=== PATIENT | male | born 1950 | race Caucasian/White ===

== ENCOUNTER → 2020-02-07 07:39 | Outpatient (BNVA) | payer MEDICARE, SELFPAY | PROVIDERS: Family Provider Family Medicine; PCP Family Medicine; Visit Provider Podiatrist Foot & Ankle Surgery | DX: L60.3 Nail dystrophy (principal) | CPT/HCPCS: 84450; 84460 ==

== ENCOUNTER → 2020-02-18 07:23 | Outpatient (BNVA) | payer MEDICARE, SELFPAY | PROVIDERS: Family Provider Family Medicine; PCP Family Medicine; Visit Provider Internal Medicine | DX: R61 Generalized hyperhidrosis (principal) | CPT/HCPCS: 84439; 84443 ==

== ENCOUNTER → 2020-03-02 11:59 | Outpatient (BNVA) | payer MEDICARE, SELFPAY | PROVIDERS: Family Provider Family Medicine; PCP Family Medicine; Visit Provider Family Medicine | DX: I48.91 Unspecified atrial fibrillation (principal); I10 Essential (primary) hypertension | CPT/HCPCS: 36415; 80053; 85025 ==

== ENCOUNTER → 2020-03-17 09:49 | Outpatient (BNVA) | payer MEDICARE, SELFPAY | PROVIDERS: Family Provider Family Medicine; PCP Family Medicine; Referring Provider Family Medicine; Visit Provider Urology | DX: N40.1 Benign prostatic hyperplasia with lower urinary tract symptoms (principal); N20.1 Calculus of ureter; R35.8 Other polyuria | CPT/HCPCS: 81001 ==

== ENCOUNTER → 2020-04-09 16:34 | Outpatient (BNVA) | payer MEDICARE, SELFPAY | PROVIDERS: Family Provider Family Medicine; PCP Family Medicine; Visit Provider Dermatology | DX: D48.9 Neoplasm of uncertain behavior, unspecified (principal) | CPT/HCPCS: 88304 ==

== ENCOUNTER 2020-04-20 12:42 | Outpatient (CLI) | payer MEDICARE, SELFPAY ==
--- NOTE | 2020-04-20 13:03 | MR_ITS ---
WS: [id number] MRI HEAD WITH CONTRAST WITH ATTENTION TO THE INTERNAL AUDITORY CANALS TECHNIQUE: Sagittal T1, T2 axial, T2 axial flair, axial susceptibility weighted imaging, axial diffus ion weighted images, and coronal T2 images were obtained. Pre and post T1 axial and post T1 coronal i mages. ADC and FSPGR images. Post gadolinium images with attention to the internal auditory canals. A xial fiesta imaging. CLINICAL INFORMATION: DIZZINESS AND GIDDINESS COMPARISON: None. FINDINGS: No evidence of restricted diffusion to suggest acute ischemia. Ventricular system and basal cisterns are patent. No suspicious intracranial signal abnormalities. Mild small vessel changes. Mild parenchy mal volume loss. Normal posterior fossa. Normal vascular flow voids at the skull base. No extra-axial fluid collections. No evidence of mass or mass effect. Paranasal sinuses and mastoid air cells are w ell aerated. Mild mucosal thickening right mastoid air cells. Normal posterior nasopharynx. Proximal 7th and 8th cranial nerves are normal in appearance. Normal trigeminal nerve root entry zone s. No hemosiderin on the susceptibility weighted images. Mild symmetric atrophy involving the tempora l lobes and hippocampal formations. Normal optic chiasm and pituitary infundibulum. MR/MR iac's wo/w con* [id number] IMPRESSION: 1. Proximal 7th and 8th cranial nerves are normal in appearance. No evidence o f enhancing IAC or CP angle mass. Normal trigeminal nerve root entry zones. 2. Mild mucosal thickening right mastoid air cells. Paranasal sinuses and left mastoid air cells are well aerated. Normal posterior nasopharynx. 3. Minimal small vessel changes. Mild parenchymal volume loss. 4. No hemosiderin on susceptibly weighted images.
== END 2020-04-20 12:43 | disposition home or self-care (01) ==
PROVIDERS: PCP Family Medicine; Visit Provider Specialist
DX: R42 Dizziness and giddiness (principal)
CPT/HCPCS: 70553; A9579

== ENCOUNTER → 2020-04-24 13:58 | Outpatient (BNVA) | payer MEDICARE, SELFPAY | PROVIDERS: PCP Family Medicine; Visit Provider Nurse Practitioner Family | DX: J02.9 Acute pharyngitis, unspecified (principal) | CPT/HCPCS: 87635; 87880 ==

== ENCOUNTER 2020-05-26 10:30 | Outpatient (RCR) | payer MEDICARE, SELFPAY | END 2020-06-18 23:59 | disposition home or self-care (01) | LOC: SPT 10:30 | PROVIDERS: PCP Family Medicine; Referring Provider Otolaryngology; Visit Provider Otolaryngology | DX: R42 Dizziness and giddiness (principal) | CPT/HCPCS: 95992; 97162 ==

== ENCOUNTER → 2020-08-12 10:01 | Outpatient (BNVA) | payer MEDICARE, SELFPAY | PROVIDERS: PCP Family Medicine; Visit Provider Family Medicine | DX: M25.521 Pain in right elbow (principal) | CPT/HCPCS: 73070 ==

== ENCOUNTER 2020-09-02 06:00 | Outpatient (RCR) | payer MEDICARE, SELFPAY | END 2020-09-16 23:59 | disposition home or self-care (01) | LOC: GPT 06:00 | PROVIDERS: PCP Family Medicine; Referring Provider Family Medicine; Visit Provider Family Medicine | DX: M62.830 Muscle spasm of back (principal) | CPT/HCPCS: 97032; 97110; 97140; 97161; 97530 ==

== ENCOUNTER 2020-09-17 06:00 | Outpatient (RCR) | payer MEDICARE, SELFPAY | END 2020-10-16 23:59 | disposition home or self-care (01) | LOC: GPT 06:00 | PROVIDERS: PCP Family Medicine; Referring Provider Family Medicine; Visit Provider Family Medicine | DX: M62.830 Muscle spasm of back (principal) | CPT/HCPCS: 97032; 97110; 97140; 97164; 97530 ==

== ENCOUNTER → 2020-11-25 11:34 | Outpatient (BNVA) | payer MEDICARE, SELFPAY | PROVIDERS: PCP Family Medicine; Visit Provider Orthopaedic Surgery | DX: M17.0 Bilateral primary osteoarthritis of knee (principal); M25.561 Pain in right knee; M25.562 Pain in left knee | CPT/HCPCS: 73560; 73565 ==

== ENCOUNTER → 2021-05-04 15:54 | Outpatient (BNVA) | payer MEDICARE, SELFPAY | PROVIDERS: PCP Family Medicine; Visit Provider Nurse Practitioner Family | DX: I10 Essential (primary) hypertension (principal); I48.91 Unspecified atrial fibrillation; N40.1 Benign prostatic hyperplasia with lower urinary tract symptoms | CPT/HCPCS: 80053; 80061; 84439; 84443; 85025; G0103 ==

== ENCOUNTER → 2021-08-02 10:19 | Outpatient (BNVA) | payer MEDICARE, SELFPAY | PROVIDERS: PCP Family Medicine; Visit Provider Family Medicine | DX: M25.432 Effusion, left wrist (principal); S52.615A Nondisplaced fracture of left ulna styloid process, initial encounter for closed fracture; X58.XXXA Exposure to other specified factors, initial encounter; M18.9 Osteoarthritis of first carpometacarpal joint, unspecified | CPT/HCPCS: 73110 ==

== ENCOUNTER → 2021-09-15 10:17 | Outpatient (BNVA) | payer MEDICARE, SELFPAY | PROVIDERS: PCP Family Medicine; Visit Provider Podiatrist Foot & Ankle Surgery | DX: M79.672 Pain in left foot (principal); M19.072 Primary osteoarthritis, left ankle and foot | CPT/HCPCS: 73630 ==

== ENCOUNTER → 2022-02-07 09:37 | Outpatient (BNVA) | payer MEDICARE, SELFPAY | PROVIDERS: PCP Family Medicine; Visit Provider Nurse Practitioner Family | DX: M79.644 Pain in right finger(s) (principal) | CPT/HCPCS: 73140 ==

== ENCOUNTER → 2022-03-23 10:46 | Outpatient (BNVA) | payer MEDICARE, SELFPAY | PROVIDERS: PCP Family Medicine; Visit Provider Nurse Practitioner Family | DX: I48.91 Unspecified atrial fibrillation (principal) | CPT/HCPCS: 99213; 99214 ==

== ENCOUNTER 2022-04-29 12:29 | Outpatient (CLI) | payer MEDICARE, SELFPAY ==
--- NOTE | 2022-04-29 12:45 | USCV_ITS ---
Miguel Angel Lechuga Age: 71 Gender: M : 1950 Exam Date: 04/29/2022 13:01 Ordering Phys: Jenny Carroll Technologist: Consuelo Dominguez [place] [facility] [place]: HTN BP: 122 / 80 HR: 74 Rhythm: Sinus Technical Quality: Good MEASUREMENTS (Male / Female) Normal Values 2D ECHO LV Diastolic Diameter PLAX 4.4 cm 4.2 - 5.9 / 3.9 - 5.3 cm LV Systolic Diameter PLAX 1.9 cm IVS Diastolic Thickness 1.0 cm 0.6 - 1.0 / 0.6 - 0.9 cm IVS Systolic Thickness 1.6 cm LVPW Diastolic Thickness 0.9 cm 0.6 - 1.0 / 0.6 - 0.9 cm LVPW Systolic Thickness 1.7 cm LVOT Diameter 2.2 cm LV Ejection Fraction 2D Teich 87.0 % LV Ejection Fraction MOD 2C 75.3 % LV Ejection Fraction 2C AL 77.5 % LA Diameter 2.4 cm LA Width 2.6 cm LA Height 4.9 cm RA Width 2.5 cm Aorta at Sinotubular Diameter 3.0 cm IVC Diameter 2.0 cm M-MODE MV E Point Septal Separation 0.2 cm DOPPLER AV Peak Velocity 121.0 cm/s LVOT Peak Velocity 119.0 cm/s AV Area Cont Eq vti 3.4 cm squared AV Area Cont Eq pk 3.8 cm squared MV Peak Velocity 127.0 cm/s MV Area PHT 3.1 cm squared Mitral E to A Ratio 0.6 MV E' Velocity 45.0 cm/s Mitral E to MV E' Ratio 8.9 Mitral E to LV E' Lateral Ratio 7.1 Mitral E to LV E' Septal Ratio 12.1 TR Peak Velocity 200.3 cm/s TR Peak Gradient 16.0 mmHg Right Atrial Pressure 3.0 mmHg Pulmonary Artery Systolic Pressu 19.0 mmHg PV Peak Velocity 89.0 cm/s RV Acceleration Time 0.1 s RV Ejection Time 0.3 s RV AcT/ET 0.4 FINDINGS Left Ventricle Left ventricle is normal in size. LV systolic function is normal with EF of 65 to 70%. No regional wall motion abnormalities are seen. Grade 1 diastolic dysfunction Right Ventricle Normal in size and function Right Atrium Normal in size Left Atrium Normal in size Mitral Valve Structurally noraml mitral valve. No signficant stenosis or regurgitation. Aortic Valve Aortic valve is structurally normal. Mild aortic regurgitation. Tricuspid Valve Trace tricuspid regurgitation. Pulmonary artery systolic pressure is normal Pulmonic Valve Not well visualized. Mild pulmonic regurgitation. Pericardium Normal Aorta Normal in size IVC CONCLUSIONS LV systolic function is normal with EF of 65-70% Grade 1 diastolic dysfunction Mild aortic regurgitation Trace tricuspid regurgitation. Mild pulmonic regurgitation No comparison studies are available Prince Sarmiento MD (Electronically Signed) Final Date: 10 May 2022 11:35 S
== END 2022-04-29 12:30 | disposition home or self-care (01) ==
LOC: RAD 12:30
PROVIDERS: PCP Family Medicine; Visit Provider Nurse Practitioner Family
DX: R01.1 Cardiac murmur, unspecified (principal); I10 Essential (primary) hypertension; I08.2 Rheumatic disorders of both aortic and tricuspid valves
CPT/HCPCS: 93306

== ENCOUNTER 2022-05-09 06:00 | Outpatient (RCR) | payer MEDICARE, SELFPAY | END 2022-05-18 23:59 | disposition home or self-care (01) | LOC: GPT 06:00 | PROVIDERS: PCP Family Medicine; Visit Provider Family Medicine | DX: M54.6 Pain in thoracic spine (principal) | CPT/HCPCS: 97110; 97140; 97161 ==

== ENCOUNTER 2022-05-19 06:00 | Outpatient (RCR) | payer MEDICARE, SELFPAY | END 2022-06-07 23:59 | disposition home or self-care (01) | LOC: GPT 06:00 | PROVIDERS: PCP Family Medicine; Visit Provider Family Medicine | DX: M54.6 Pain in thoracic spine (principal) | CPT/HCPCS: 97110; 97112; 97140; 97535 ==

== ENCOUNTER → 2022-06-01 11:53 | Outpatient (BNVA) | payer MEDICARE, SELFPAY | PROVIDERS: PCP Family Medicine; Visit Provider Family Medicine | DX: K62.89 Other specified diseases of anus and rectum (principal) | CPT/HCPCS: 81000 ==

== ENCOUNTER → 2022-06-14 10:07 | Outpatient (BNVA) | payer MEDICARE, SELFPAY | PROVIDERS: PCP Family Medicine; Visit Provider Surgery | DX: K62.89 Other specified diseases of anus and rectum (principal); K59.00 Constipation, unspecified; K40.90 Unilateral inguinal hernia, without obstruction or gangrene, not specified as recurrent; K64.9 Unspecified hemorrhoids | CPT/HCPCS: 99204 ==

== ENCOUNTER 2022-06-29 07:26 | Day surgery (SDC) | payer MEDICARE, SELFPAY ==
[2022-06-27 12:01] VITALS: BMI 22.3
[2022-06-29 07:51] VITALS: BP 179/104; PULSE 104; RESP 18; TEMP 36.4; O2SAT 98
[2022-06-29] MEDS: sodium chloride 0.9% 1,000 ML 30 ML IV (07:55)
--- NOTE | 2022-06-29 08:08 | ANES.PREANE2 ---
Pre-Anesthetic Assessment Height/Weight: Height 1.8 m Weight 72.575 kg Temp Pulse Resp BP Pulse Ox O2 Del Method 97.5 F L 104 H 18 179/104 98 06/29/22 07:51 06/29/22 07:51 06/29/22 07:51 06/29/22 07:51 06/29/22 07:51 06/29/22 07:51 Operation Date: 06/29/22 09:00 Proposed Procedures p Colonoscopy 15890,K59.00,K62.89(Not Applicable) - Naun Maxwell, DO Was Beta Andressa taken within 24 hours: Yes Was Clonidine taken within 24 hours: Yes Last intake: Intake Last Liquid Date 06/28/22 Last Liquid Time 22:00 Last Solid Date 06/27/22 Last Solid Time 18:00 Last Intake: 12:00 Exam alert, oriented x 3 and clear to auscultation bilaterally Airway Mallampati: Class II History/ROS No significant history except as noted Pulmonary None reported CV/HEM Atrial Fibrillation eliquis last taken 06/27/2022 None reported Hepatic None reported GI Gastroesophageal Reflux Disease controlled Metabolic None reported Musc/skel Lower Back Pain and Osteoarthritis/DJD (DDD) Neuropsych Anxiety Anesthetic Plan ASA status: 2 Anesthesia: MAC Risk of > 500 ml blood loss (7ml/kg in children): No Medications/Allergies Home Medications Medication Instructions Recorded Confirmed Last Taken Type glucosamine HCl 500 mg tablet 500 mg PO BID 08/02/19 06/27/22 06/26/22 History multivitamin (Daily Multi-Vitamin 1 tab PO DAILY 08/02/19 06/27/22 06/26/22 History tablet) omega-3 fatty acids 1,000 mg 1,000 mg PO DAILY 08/02/19 06/27/22 06/26/22 History capsule (Fish Oil Concentrate) magnesium 250 mg tablet 250 mg PO DAILY 03/17/20 06/27/22 06/26/22 History cholecalciferol (vitamin D3) 125 mcg PO DAILY 06/26/20 06/27/22 06/26/22 History zinc 50 mg tablet 50 mg PO DAILY 06/26/20 06/27/22 06/26/22 History apixaban 5 mg tablet (Eliquis) 5 mg PO BID #60 tabs 08/05/21 06/27/22 06/27/22 Rx coenzyme Q10 100 mg capsule 100 mg PO DAILY 08/20/21 06/27/22 06/26/22 History (CoQ-10) fluticasone propionate 50 1 spray intranasal DAILY PRN 06/27/22 06/27/22 06/26/22 History mcg/actuation nasal allergies spray,suspension hydrocortisone 2.5 % topical cream 1 applic MA QID PRN Hemorrhoids 06/27/22 06/27/22 06/26/22 History with perineal applicator (Anusol-HC) pantoprazole 40 mg tablet,delayed 40 mg PO DAILY 06/27/22 06/27/22 06/26/22 History release polyethylene glycol 3350 17 4 g PO DAILY 06/27/22 06/27/22 06/26/22 History gram/dose oral powder (Miralax) Allergies Allergy/AdvReac Type Severity Reaction Status Date / Time acetaminophen Allergy Intermediate ALGY-Rash Verified 06/27/22 11:47 [From Darvocet-N] propoxyphene Allergy Intermediate ALGY-Rash Verified 06/27/22 11:47 [From Darvocet-N] codeine Allergy ALGY-Rash Verified 06/27/22 11:47 Current Medications Generic Name Dose Route Start Last Admin Trade Name Freq PRN Reason Stop Dose Admin Sodium Chloride 1,000 mls @ 30 mls/hr 06/28/22 13:30 06/29/22 07:55 Sodium Chloride 0.9% IV 06/29/22 13:29 30 mls/hr .Q24H STELLA Administration PFSH Anesthesia Medical History (Updated 06/14/22 @ 10:34 by Naun Maxwell DO) Afib BPH (benign prostatic hyperplasia) BPH loc w urin obs/LUTS Constipation Gastroesophageal reflux disease History of nonmelanoma skin cancer Hypertension Inguinal hernia Nail dystrophy Polyuria Right inguinal hernia Surgical History H/O hernia repair Family History Mother No problems noted. Father , 50-PR CAD (coronary artery disease) Social History Smoking and tobacco status: never smoked Alcohol intake: never Marital status: Single Current occupational status: retired Data Anesthesia Cardiac Studies: Echocardiogram 04/29/22
--- NOTE | 2022-06-29 09:10 | W.PM.OPSUD ---
Surgery/Procedure H&P Update DATE OF PROCEDURE: June 29, 2022 DATE H&P PERFORMED: 06/14/22 PLANNED PROCEDURE: Operation Date: 06/29/22 09:00 Proposed Procedures p Colonoscopy 39744,K59.00,K62.89(Not Applicable) - Naun Maxwell DO
[2022-06-29 09:35] VITALS: BP 124/79; PULSE 78; RESP 20; TEMP 36.3; O2SAT 98
[2022-06-29 09:45] VITALS: BP 140/84; PULSE 77; RESP 16; O2SAT 97
--- NOTE | 2022-06-29 13:33 | ANE.PACU2 ---
Inpatient post-anesthesia follow up: Airway intact: Yes Vital signs: Temperature 97.3 F Pulse Rate 77 Respiratory Rate 16 Blood Pressure 140/84 Pulse Oximetry 97 Oxygen Delivery Me thod Room Air Oxygen Flow Rate Fraction of Inspir ed Oxygen Hydration adequate: Yes Nausea and vomiting: No Pain level: 1 Mental status: Baseline
== END 2022-06-29 10:05 | disposition home or self-care (01) ==
PROVIDERS: PCP Family Medicine; Visit Provider Surgery
PROC: 0DJD8ZZ Inspection of Lower Intestinal Tract, Via Natural or Artificial Opening Endoscopic (ICD-10-PCS; CPT 45378; principal; 2022-06-29 09:00)
DX: K59.00 Constipation, unspecified (principal); K62.89 Other specified diseases of anus and rectum; K64.8 Other hemorrhoids; I48.91 Unspecified atrial fibrillation; Z79.01 Long term (current) use of anticoagulants; K21.9 Gastro-esophageal reflux disease without esophagitis; M19.90 Unspecified osteoarthritis, unspecified site; F41.9 Anxiety disorder, unspecified; N40.1 Benign prostatic hyperplasia with lower urinary tract symptoms; N13.8 Other obstructive and reflux uropathy; I10 Essential (primary) hypertension
CPT/HCPCS: 45378; G0121; J2704; J3490; J7030

== ENCOUNTER 2022-07-07 06:23 | Day surgery (SDC) | payer MEDICARE, SELFPAY ==
[2022-07-06 14:09] VITALS: BMI 22.3
[2022-07-07] VITALS (12 sets, daily range): BP systolic 109–179; BP diastolic 61–93; PULSE 57–80; RESP 12–27; TEMP 36.2–36.5; O2SAT 95–100
--- NOTE | 2022-07-07 07:00 | W.PM.OPSUD ---
Surgery/Procedure H&P Update DATE OF PROCEDURE: July 07, 2022 DATE H&P PERFORMED: 06/14/22 PLANNED PROCEDURE: Operation Date: 07/07/22 08:15 Proposed Procedures p right inguinal hernia repair with mesh 62344,K40.90(Right) - Naun Maxwell DO
[2022-07-07] MEDS: sodium chloride 0.9% 1,000 ML 30 ML IV (07:16)
[2022-07-07] MEDS: ceFAZolin 2,000 MG in sodium chloride 0.9% (plus) 50 ML 100 MG IV (08:16)
--- NOTE | 2022-07-07 08:24 | ANES.PREANE2 ---
Pre-Anesthetic Assessment Height/Weight: Height 1.8 m Weight 72.575 kg Temp Pulse Resp BP Pulse Ox O2 Del Method 97.6 F 80 16 179/93 98 07/07/22 07:01 07/07/22 07:01 07/07/22 07:01 07/07/22 07:01 07/07/22 07:01 07/07/22 07:06 Preop Diagnosis: Right inguinal hernia Operation Date: 07/07/22 08:15 Proposed Procedures p right inguinal hernia repair with mesh 51214,K40.90(Right) - Naun Maxwell DO Familial anesthetic complications: none Was Beta Andressa taken within 24 hours: N/A Was Clonidine taken within 24 hours: N/A Last intake: Intake Last Liquid Date 07/06/22 Last Liquid Time 21:00 Last Solid Date 07/06/22 Last Solid Time 21:00 Social No alcohol and No tobacco Exam alert, oriented x 3 and clear to auscultation bilaterally irregular Airway Submandibular: within normal limits Cervical ROM: within normal limits Mallampati: Class II Dentition: chipped CV/HEM Atrial Fibrillation and Hypertension Anesthetic Plan ASA status: 3 Anesthesia: General Medications/Allergies Home Medications Medication Instructions Recorded Confirmed Last Taken Type glucosamine HCl 500 mg tablet 500 mg PO BID 08/02/19 07/06/22 07/03/22 History multivitamin (Daily Multi-Vitamin 1 tab PO DAILY 08/02/19 07/06/22 07/06/22 History tablet) omega-3 fatty acids 1,000 mg 1,000 mg PO DAILY 08/02/19 07/06/22 07/03/22 History capsule (Fish Oil Concentrate) magnesium 250 mg tablet 250 mg PO DAILY 03/17/20 07/07/22 07/03/22 History cholecalciferol (vitamin D3) 125 mcg PO DAILY 06/26/20 07/06/22 07/06/22 History zinc 50 mg tablet 50 mg PO DAILY 06/26/20 07/06/22 07/06/22 History apixaban 5 mg tablet (Eliquis) 5 mg PO BID #60 tabs 08/05/21 07/06/22 07/03/22 Rx coenzyme Q10 100 mg capsule 100 mg PO DAILY 08/20/21 07/06/22 06/26/22 History (CoQ-10) fluticasone propionate 50 1 spray intranasal DAILY PRN 06/27/22 07/07/22 06/26/22 History mcg/actuation nasal allergies spray,suspension hydrocortisone 2.5 % topical cream 1 applic NV QID PRN Hemorrhoids 06/27/22 07/06/22 07/06/22 History with perineal applicator (Anusol-HC) pantoprazole 40 mg tablet,delayed 40 mg PO DAILY 06/27/22 07/06/22 07/06/22 History release polyethylene glycol 3350 17 4 g PO DAILY 06/27/22 07/06/22 06/26/22 History gram/dose oral powder (Miralax) Allergies Allergy/AdvReac Type Severity Reaction Status Date / Time acetaminophen Allergy Intermediate ALGY-Rash Verified 07/06/22 14:03 [From Darvocet-N] propoxyphene Allergy Intermediate ALGY-Rash Verified 07/06/22 14:03 [From Darvocet-N] codeine Allergy ALGY-Rash Verified 07/06/22 14:03 Current Medications Generic Name Dose Route Start Last Admin Trade Name Freq PRN Reason Stop Dose Admin Sodium Chloride 1,000 mls @ 30 mls/hr 07/07/22 06:45 07/07/22 07:16 Sodium Chloride 0.9% IV 07/08/22 06:44 30 mls/hr .Q24H STELLA Administration PFSH Anesthesia Medical History (Updated 06/14/22 @ 10:34 by Naun Maxwell DO) Afib BPH (benign prostatic hyperplasia) BPH loc w urin obs/LUTS Constipation Gastroesophageal reflux disease History of nonmelanoma skin cancer Hypertension Inguinal hernia Nail dystrophy Polyuria Right inguinal hernia Surgical History H/O hernia repair Family History Mother No problems noted. Father , 50-[place] CAD (coronary artery disease) Social History Smoking and tobacco status: never smoked Alcohol intake: never Marital status: Single Current occupational status: retired Data Anesthesia Cardiac Studies: Echocardiogram 04/29/22
--- NOTE | 2022-07-07 09:11 | PM.OP ---
Operative Report Date of procedure: July 07, 2022 Pre-op diagnosis: Preop Diagnosis Right inguinal hernia Post-op diagnosis: other (Right inguinal hernia with cord lipoma) Procedure done: Laparoscopic (TEPP) right inguinal hernia repair with mesh Implants: Extra-large right 3D max Bard mesh Specimens removed/disposition: None Surgeon: Dr. Naun Maxwell DO Anesthesia: General Estimated blood loss (mL): 5 Complications: None apparent Brief History: Is a very pleasant 71-year-old gentleman with a right inguinal hernia. Laparoscopic repair with mesh was indicated. The risks and benefits were explained and documented. Procedure: Patient was wheeled into the operative room and placed on the OR table in a supine position. Abdomen was inspected prepped and draped in usual sterile fashion. Time-out was performed and all present were in agreement. A 15 blade scalpel was used to make 1.2 centimeter incision infraumbilically. Combination of sharp and blunt dissection was performed down to the anterior rectus sheath which was opened sharply. The dissecting balloon was then inserted into the space of Retzius and blown up. We put the camera into the port and identified that we were in the correct space. I then placed 2 5 millimeter trocars suprapubically in the midline. I then used endokitners to bluntly dissect in the space of Retzius out laterally. An indirect inguinal hernia was identified on the right. Blunt dissection was performed to dissect down the hernia sac until the vas deferens dove medially. There was a large cord lipoma in the inguinal canal as well. I reduce this down into the space of Retzius. An extralarge right inguinal mesh was then placed into the space of Retzius. The mesh was unrolled and tacked once medially at the pubic bone. The mesh laid out nicely over the spermatic cord. I watched the hernia sac remained in place as insufflation was removed. Incisions were closed with 4 O Vicryl in a subcuticular interrupted fashion. Skin glue was applied. Patient tolerated the procedure well.
--- NOTE | 2022-07-07 09:36 | PC.NURSE ---
awake and oral airway removed
[2022-07-07] MEDS: TRAMadol 50 mg Tablet PO (10:18)
[2022-07-07] MEDS: ondansetron 2 mg/ML SDV 2 mL 4 MG IVP (10:19)
--- NOTE | 2022-07-07 13:50 | ANE.PACU2 ---
Inpatient post-anesthesia follow up: Airway intact: Yes Vital signs: Temperature 97.4 F Pulse Rate 60 Respiratory Rate 16 Blood Pressure 135/75 Pulse Oximetry 98 Oxygen Delivery Me thod Room Air Oxygen Flow Rate 0 Fraction of Inspir ed Oxygen Hydration adequate: Yes Nausea and vomiting: No Pain level: 2 Mental status: Baseline
== END 2022-07-07 11:12 | disposition home or self-care (01) ==
PROVIDERS: PCP Family Medicine; Visit Provider Surgery
PROC: (CPT 49650; principal; 2022-07-07 08:05)
DX: K40.90 Unilateral inguinal hernia, without obstruction or gangrene, not specified as recurrent (principal); D17.6 Benign lipomatous neoplasm of spermatic cord; I48.91 Unspecified atrial fibrillation; I10 Essential (primary) hypertension; N40.1 Benign prostatic hyperplasia with lower urinary tract symptoms; N13.8 Other obstructive and reflux uropathy; K21.9 Gastro-esophageal reflux disease without esophagitis
CPT/HCPCS: 49650; 51702; C1781; J0461; J0690; J1100; J2405; J2704; J3010; J3490; J7030

== ENCOUNTER → 2022-07-13 11:12 | Outpatient (BNVA) | payer MEDICARE, SELFPAY | PROVIDERS: PCP Family Medicine; Visit Provider Surgery | DX: Z09 Encounter for follow-up examination after completed treatment for conditions other than malignant neoplasm (principal); K64.8 Other hemorrhoids | CPT/HCPCS: 99212 ==

== ENCOUNTER → 2022-07-22 08:28 | Outpatient (BNVA) | payer MEDICARE, SELFPAY | PROVIDERS: PCP Family Medicine; Visit Provider Surgery | DX: Z98.890 Other specified postprocedural states (principal); Z87.19 Personal history of other diseases of the digestive system; K64.9 Unspecified hemorrhoids | CPT/HCPCS: 99024; 99213 ==

== ENCOUNTER 2022-08-08 12:17 | Day surgery (SDC) | payer MEDICARE, SELFPAY ==
[2022-08-05 08:22] VITALS: BMI 22.3
[2022-08-08] VITALS (12 sets, daily range): BP systolic 130–182; BP diastolic 71–111; PULSE 55–108; RESP 16–19; TEMP 36.1–36.6; O2SAT 97–100
[2022-08-08] MEDS: sodium chloride 0.9% 1,000 ML 30 ML IV (12:43)
--- NOTE | 2022-08-08 12:59 | ANES.PREANE2 ---
Pre-Anesthetic Assessment Height/Weight: Height 1.8 m Weight 72.575 kg Temp Pulse Resp BP Pulse Ox O2 Del Method 97.6 F 108 H 18 182/111 97 08/08/22 12:37 08/08/22 12:37 08/08/22 12:37 08/08/22 12:37 08/08/22 12:37 08/08/22 12:45 Preop Diagnosis: Hemorrhoids Operation Date: 08/08/22 11:45 Proposed Procedures p 36152 hemorrhoidectomy K64.9(Not Applicable) - Naun Maxwell DO Familial anesthetic complications: None Was Beta Andressa taken within 24 hours: N/A Was Clonidine taken within 24 hours: N/A Last intake: Intake Last Liquid Date 08/07/22 Last Liquid Time 22:00 Last Solid Date 08/06/22 Last Solid Time 20:00 Social No alcohol and No tobacco Exam alert, oriented x 3, clear to auscultation bilaterally and regular rate & rhythm Airway Mallampati: Class III Dentition: chipped CV/HEM Atrial Fibrillation and Hypertension mild AVR and PVR, Trace TVR, grade I diastolic Dysfunction GI Gastroesophageal Reflux Disease Anesthetic Plan ASA status: 3 Anesthesia: General Risk of > 500 ml blood loss (7ml/kg in children): No Medications/Allergies Home Medications Medication Instructions Recorded Confirmed Last Taken Type glucosamine HCl 500 mg tablet 500 mg PO BID 08/02/19 08/05/22 08/04/22 History multivitamin (Daily Multi-Vitamin 1 tab PO DAILY 08/02/19 08/05/22 08/06/22 History tablet) omega-3 fatty acids 1,000 mg 1,000 mg PO DAILY 08/02/19 08/05/22 08/04/22 History capsule (Fish Oil Concentrate) magnesium 250 mg tablet 250 mg PO DAILY 03/17/20 08/05/22 08/04/22 History cholecalciferol (vitamin D3) 125 mcg PO DAILY 06/26/20 08/05/22 08/07/22 History zinc 50 mg tablet 50 mg PO DAILY 06/26/20 08/05/22 08/07/22 History apixaban 5 mg tablet (Eliquis) 5 mg PO BID #60 tabs 08/05/21 08/05/22 08/05/22 Rx coenzyme Q10 100 mg capsule 100 mg PO DAILY 08/20/21 08/05/2223 History (CoQ-10) fluticasone propionate 50 1 spray intranasal DAILY PRN 06/27/22 08/05/22 08/06/22 History mcg/actuation nasal allergies spray,suspension hydrocortisone 2.5 % topical cream 1 applic MD QID PRN Hemorrhoids 06/27/22 08/05/22 08/04/22 History with perineal applicator (Anusol-HC) pantoprazole 40 mg tablet,delayed 40 mg PO DAILY 06/27/22 08/05/22 08/07/22 History release polyethylene glycol 3350 17 4 g PO DAILY PRN Constipation 06/27/22 08/05/22 08/06/22 History gram/dose oral powder (Miralax) tramadol 50 mg tablet 100 mg PO Q6H PRN pain #30 tabs 07/07/22 08/05/22 08/06/22 Rx Allergies Allergy/AdvReac Type Severity Reaction Status Date / Time acetaminophen Allergy Intermediate ALGY-Rash Verified 08/05/22 08:18 [From Darvocet-N] propoxyphene Allergy Intermediate ALGY-Rash Verified 08/05/22 08:18 [From Darvocet-N] codeine Allergy ALGY-Rash Verified 08/05/22 08:18 Current Medications Generic Name Dose Route Start Last Admin Trade Name Freq PRN Reason Stop Dose Admin Sodium Chloride 1,000 mls @ 30 mls/hr 08/08/22 12:30 08/08/22 12:43 Sodium Chloride 0.9% IV 08/09/22 12:29 30 mls/hr .Q24H STELLA Administration PFSH Anesthesia Medical History Afib BPH (benign prostatic hyperplasia) BPH loc w urin obs/LUTS Constipation Gastroesophageal reflux disease History of nonmelanoma skin cancer Hypertension Inguinal hernia Nail dystrophy Polyuria Right inguinal hernia Surgical History (Updated 07/22/22 @ 09:01 by Naun Maxwell DO) H/O hernia repair Status post right inguinal hernia repair Family History Mother No problems noted. Father , 50-PR CAD (coronary artery disease) Social History Smoking and tobacco status: never smoked Alcohol intake: never Marital status: Single Current occupational status: retired Data Anesthesia Cardiac Studies: Echocardiogram 04/29/22
--- NOTE | 2022-08-08 13:12 | W.PM.OPSUD ---
Surgery/Procedure H&P Update DATE OF PROCEDURE: August 08, 2022 DATE H&P PERFORMED: 07/22/22 H&P UPDATE INFORMATION: I have reviewed H&P completed within last 30 days, I have examined patient prior to procedure and No changes to prior documentation PREOP DIAGNOSIS: Hemorrhoids PLANNED PROCEDURE: Operation Date: 08/08/22 11:45 Proposed Procedures p 27007 hemorrhoidectomy K64.9(Not Applicable) - Naun Maxwell DO
[2022-08-08] MEDS: ceFAZolin 2,000 MG in sodium chloride 0.9% (plus) 50 ML 100 MG IV (13:44)
[2022-08-08] MEDS: thrombin 5,000 unit SDV 5000 UNIT XX (14:15)
--- NOTE | 2022-08-08 14:42 | PM.OP ---
Operative Report Date of procedure: August 08, 2022 Pre-op diagnosis: Preop Diagnosis Hemorrhoids Post-op diagnosis: same Procedure done: Hemorrhoidectomy Implants: Thrombin soaked Gelfoam into anus Specimens removed/disposition: Hemorrhoidal pillars Surgeon: Dr. Naun Maxwell DO Anesthesia: General Estimated blood loss (mL): 2 Complications: None apparent Brief History: Is a very pleasant 71-year-old gentleman with large hemorrhoids who desires excision. The risks and benefits were explained documented. Procedure: Patient was well in the operative room and general endotracheal ovation was achieved by the department anesthesia. He was then placed into the prone jackknife position. The anus was inspected prepped and draped in usual sterile fashion. A timeout was performed. All present were in agreement. Retractor was used to examine the anus and he had sizable hemorrhoids at all 3 pillars. The largest pillar was the right posterior. All 3 pillars were taken in the same manner. The exterior most edge of the hemorrhoid was slightly ligated with electrocautery. The harmonic scalpel was then used to excise all 3 hemorrhoidal pillars. There was minimal bleeding. Thrombin-soaked Gelfoam was then placed into the anus. Sterile bandage was applied. Patient tolerated procedure well.
[2022-08-08] MEDS: fentaNYL 50 mcg/mL INJ 2mL IVP (15:01)
[2022-08-08] MEDS: HYDROcodone-acetaminophen 10-325 mg Tablet 1 TAB PO (15:34)
--- NOTE | 2022-08-08 15:46 | ANE.PACU2 ---
Inpatient post-anesthesia follow up: Airway intact: Yes Vital signs: Temperature 98 F Pulse Rate 55 Respiratory Rate 18 Blood Pressure 164/76 Pulse Oximetry 100 Oxygen Delivery Me thod Room Air Oxygen Flow Rate 6 Fraction of Inspir ed Oxygen Hydration adequate: Yes Nausea and vomiting: No Pain level: 1 Mental status: Baseline
== END 2022-08-08 16:15 | disposition home or self-care (01) ==
PROVIDERS: PCP Family Medicine; Visit Provider Surgery
PROC: (CPT 46250; principal; 2022-08-08 11:35)
DX: K64.4 Residual hemorrhoidal skin tags (principal); I48.91 Unspecified atrial fibrillation; I10 Essential (primary) hypertension; K21.9 Gastro-esophageal reflux disease without esophagitis; N40.1 Benign prostatic hyperplasia with lower urinary tract symptoms; N13.8 Other obstructive and reflux uropathy
CPT/HCPCS: 46250; 88304; J0690; J1100; J2405; J2704; J2710; J3010; J3490; J7030

== ENCOUNTER → 2022-08-30 11:15 | Outpatient (BNVA) | payer MEDICARE, SELFPAY | PROVIDERS: PCP Family Medicine; Visit Provider Surgery | DX: Z98.890 Other specified postprocedural states (principal) | CPT/HCPCS: 99024 ==

== ENCOUNTER → 2022-09-27 13:02 | Outpatient (BNVA) | payer MEDICARE, SELFPAY | PROVIDERS: PCP Family Medicine; Visit Provider Surgery | DX: K40.91 Unilateral inguinal hernia, without obstruction or gangrene, recurrent (principal); Z98.890 Other specified postprocedural states; Z87.19 Personal history of other diseases of the digestive system | CPT/HCPCS: 99213 ==

== ENCOUNTER → 2022-11-09 15:57 | Outpatient (BNVA) | payer MEDICARE, SELFPAY | PROVIDERS: PCP Family Medicine; Visit Provider Internal Medicine | DX: I48.91 Unspecified atrial fibrillation (principal); I10 Essential (primary) hypertension; Z79.01 Long term (current) use of anticoagulants | CPT/HCPCS: 99214 ==

== ENCOUNTER → 2023-03-10 14:05 | Outpatient (BNVA) | payer MEDICARE, SELFPAY | PROVIDERS: PCP Family Medicine; Visit Provider Nurse Practitioner Family | DX: R39.11 Hesitancy of micturition (principal) | CPT/HCPCS: 81000 ==

== ENCOUNTER → 2023-03-31 08:49 | Outpatient (BNVA) | payer MEDICARE, SELFPAY | PROVIDERS: PCP Family Medicine; Visit Provider Physician Assistant | DX: M70.71 Other bursitis of hip, right hip | CPT/HCPCS: 73502; 99203 ==

== ENCOUNTER → 2023-05-23 14:13 | Outpatient (BNVA) | payer MEDICARE, SELFPAY | PROVIDERS: PCP Family Medicine; Visit Provider Internal Medicine | DX: I48.91 Unspecified atrial fibrillation (principal); I10 Essential (primary) hypertension; Z79.01 Long term (current) use of anticoagulants | CPT/HCPCS: 99214 ==

== ENCOUNTER → 2023-08-03 12:40 | Outpatient (BNVA) | payer MEDICARE, SELFPAY | PROVIDERS: PCP Family Medicine; Visit Provider Surgery | DX: L29.0 Pruritus ani (principal); K40.91 Unilateral inguinal hernia, without obstruction or gangrene, recurrent | CPT/HCPCS: 99214 ==

== ENCOUNTER → 2023-10-19 08:17 | Outpatient (BNVA) | payer MEDICARE, SELFPAY | PROVIDERS: PCP Family Medicine; Visit Provider Nurse Practitioner Family | DX: B07.8 Other viral warts (principal); M15.1 Heberden's nodes (with arthropathy); L57.0 Actinic keratosis; L90.5 Scar conditions and fibrosis of skin; L57.8 Other skin changes due to chronic exposure to nonionizing radiation | CPT/HCPCS: 17000; 17110; 99213 ==

== ENCOUNTER → 2023-10-31 10:44 | Outpatient (BNVA) | payer MEDICARE, SELFPAY | PROVIDERS: PCP Family Medicine; Visit Provider Physician Assistant | DX: M25.551 Pain in right hip (principal); M25.552 Pain in left hip; M25.561 Pain in right knee; M25.562 Pain in left knee | CPT/HCPCS: 20610; 73560; 73565; 99213; J3301 ==

== ENCOUNTER → 2023-11-09 09:16 | Outpatient (BNVA) | payer MEDICARE, SELFPAY | PROVIDERS: PCP Family Medicine; Visit Provider Nurse Practitioner Family | DX: B07.8 Other viral warts (principal); L57.0 Actinic keratosis; Z85.828 Personal history of other malignant neoplasm of skin | CPT/HCPCS: 17000; 17110; 99213 ==

== ENCOUNTER → 2023-12-04 15:03 | Outpatient (BNVA) | payer MEDICARE, SELFPAY | PROVIDERS: PCP Family Medicine; Visit Provider Internal Medicine Cardiovascular Disease | DX: I48.91 Unspecified atrial fibrillation (principal); I10 Essential (primary) hypertension; Z79.01 Long term (current) use of anticoagulants | CPT/HCPCS: 99213 ==

== ENCOUNTER → 2023-12-07 09:15 | Outpatient (BNVA) | payer MEDICARE, SELFPAY | PROVIDERS: PCP Family Medicine; Visit Provider Nurse Practitioner Family | DX: B07.8 Other viral warts (principal); D22.71 Melanocytic nevi of right lower limb, including hip; Z85.828 Personal history of other malignant neoplasm of skin | CPT/HCPCS: 99213 ==

== ENCOUNTER → 2024-02-29 10:37 | Outpatient (BNVA) | payer MEDICARE, SELFPAY | PROVIDERS: PCP Family Medicine; Visit Provider Podiatrist Foot & Ankle Surgery | DX: L60.8 Other nail disorders (principal) | CPT/HCPCS: 99213 ==

== ENCOUNTER → 2024-03-05 09:37 | Outpatient (BNVA) | payer MEDICARE, SELFPAY | PROVIDERS: PCP Family Medicine; Visit Provider Physician Assistant | DX: M17.11 Unilateral primary osteoarthritis, right knee (principal) | CPT/HCPCS: 99213 ==

== ENCOUNTER → 2024-03-14 09:45 | Outpatient (BNVA) | payer MEDICARE, SELFPAY | PROVIDERS: PCP Family Medicine; Visit Provider Nurse Practitioner Family | DX: L57.0 Actinic keratosis (principal); D22.71 Melanocytic nevi of right lower limb, including hip; D36.14 Benign neoplasm of peripheral nerves and autonomic nervous system of thorax; L81.4 Other melanin hyperpigmentation; L57.8 Other skin changes due to chronic exposure to nonionizing radiation | CPT/HCPCS: 17000; 17110; 99213 ==

== ENCOUNTER → 2024-04-16 11:06 | Outpatient (BNVA) | payer MEDICARE, SELFPAY | PROVIDERS: PCP Family Medicine; Visit Provider Physician Assistant | DX: M75.42 Impingement syndrome of left shoulder (principal); R03.0 Elevated blood-pressure reading, without diagnosis of hypertension | CPT/HCPCS: 20610; 73030; 99213; J3301 ==

== ENCOUNTER → 2024-05-02 10:08 | Outpatient (BNVA) | payer MEDICARE, SELFPAY | PROVIDERS: PCP Family Medicine; Visit Provider Physician Assistant | DX: M17.11 Unilateral primary osteoarthritis, right knee (principal) | CPT/HCPCS: 99213 ==

== ENCOUNTER → 2024-05-14 09:46 | Outpatient (BNVA) | payer MEDICARE, SELFPAY | PROVIDERS: PCP Family Medicine; Visit Provider Nurse Practitioner Family | DX: L57.8 Other skin changes due to chronic exposure to nonionizing radiation (principal); Z08 Encounter for follow-up examination after completed treatment for malignant neoplasm; Z85.828 Personal history of other malignant neoplasm of skin; B07.8 Other viral warts; L53.8 Other specified erythematous conditions; Z29.89 Encounter for other specified prophylactic measures | CPT/HCPCS: 17110; 99213 ==

== ENCOUNTER 2024-05-20 14:00 | Emergency (ER) | payer MEDICARE, SELFPAY ==
--- NOTE | 2024-05-20 14:05 | XRR_ITS ---
PROCEDURE INFORMATION: Exam: XR Chest Exam date and time: 05/20/2024 2:13 PM Age: 73 years old Clinical indication: Pain; Angina pectoris; Patient HX: Left side cp x this am. HX of a-fib TECHNIQUE: Imaging protocol: Radiologic exam of the chest. Views: 1 view. COMPARISON: CR XR shoulder LT min 2V* [id number] 04/16/2024 11:12 AM FINDINGS: Lungs: No consolidation. Pleural spaces: No sizable pleural effusion or pneumothorax. Heart/Mediastinum: No cardiomegaly. Bones/joints: Unremarkable. XR/XR chest 1V portable [id number] IMPRESSION: No acute intrathoracic findings.
[2024-05-20 14:06] VITALS: BP 184/84; PULSE 80; RESP 18; TEMP 36.7; O2SAT 100; BMI 22.4
--- NOTE | 2024-05-20 14:17 | ECG_ITS ---
[employer] 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 Measurements Intervals [place] Rate: 70 P: 32 CO: 165 QRS: 16 QRSD: 91 T: 21 QT: 377 QTc: 409 Interpretive Statements SINUS RHYTHM POSSIBLE LEFT ATRIAL ENLARGEMENT [-0.1mV P-WAVE IN V1/V2] No previous ECG available for comparison Electronically Signed On 05-21-2024 21:37:59 E[employer]OMET[employer]IC[employer] by Prince Sarmiento M.D. [email or web address]
--- NOTE | 2024-05-20 14:30 | ED_ITS ---
HPI - Chest Pain 2 General: Chief Complaint: Chest Pain Stated Complaint: cp Time Seen by Provider: 05/20/24 14:14 Source: patient Mode of arrival: ambulatory Limitations: no limitations History of Present Illness: Patient is a very nice healthy appearing 73-year-old male here for evaluation of intermittent episodes of left-sided chest pain. He states these episodes have been going on for a while now . When asked to clarify timeline he tells me years . Essentially he states he will have brief intermittent episodes of pain to the left side of his chest. He he can point with 1-2 fingers exactly where the pain occurs. He states episodes last anywhere from 1 minute to 10-15 minutes for completely subsiding on their own. He states they seem to come out of the blue . Patient states he is very active and walks several miles daily. He states he never gets episodes while walking. He states he never feels short of breath or has any difficulty breathing. He does have a history of intermittent atrial fibrillation and knows when he goes into this rhythm and states it is infrequent. He is compliant with his Eliquis. Patient states he has a history of hypertension but does not tolerate antihypertensive medication due to side effects. He states his blood pressure normally is controlled at home but over the past few weeks it has been running elevated with systolics in the 160s?170s. complaint: chest pain Onset (ago): year(s) Timing of current episode: episodic Prior episodes: Yes Onset: during rest Pain location: left chest Pain radiation: none Severity: mild Relieving factors: nothing Exacerbating factors: nothing Associated symptoms: Deny abdominal pain, dyspnea, fever(s), nausea, palpitations, syncope or vomiting Treatment prior to arrival: none Risk Factors: Coronary artery disease risk factors: hypertension Thoracic aortic dissection risk factors: none Related Data Home Medications Medication Instructions Recorded Confirmed glucosamine HCl 500 mg tablet 500 mg PO BID 08/02/19 05/20/24 multivitamin (Daily Multi-Vitamin 1 tab PO DAILY 08/02/19 05/20/24 tablet) magnesium 250 mg tablet 250 mg PO DAILY 03/17/20 05/20/24 cholecalciferol (vitamin D3) 125 mcg PO DAILY 06/26/20 05/20/24 coenzyme Q10 100 mg capsule 100 mg PO DAILY 08/20/21 05/20/24 (CoQ-10) fluticasone propionate 50 1 spray intranasal DAILY PRN 06/27/22 05/20/24 mcg/actuation nasal allergies spray,suspension pantoprazole 40 mg tablet,delayed 40 mg PO DAILY 05/20/24 05/20/24 release Previous Rx's Medication Instructions Recorded lidocaine 5 % topical patch 1 patch topical DAILY #15 ea 03/10/23 apixaban 5 mg tablet (Eliquis) 5 mg PO BID #60 tabs 10/20/23 lisinopril 2.5 mg tablet 2.5 mg PO DAILY #30 tabs 05/20/24 Allergies Allergy/AdvReac Type Severity Reaction Status Date / Time acetaminophen Allergy Intermediate ALGY-Rash Verified 05/02/24 10:24 [From Darvocet-N] propoxyphene Allergy Intermediate ALGY-Rash Verified 05/02/24 10:24 [From Darvocet-N] codeine Allergy ALGY-Rash Verified 05/02/24 10:24 Review of Systems 2 Const: Denies: fever(s) or chills Eyes: Denies: change in vision or blurry vision Card: Reports: chest pain; Denies: palpitations, irregular heart rhythm, edema, swelling of feet/ankles, lightheadedness, syncope, pre-syncope, dyspnea on exertion, orthopnea, leg pain with exertion or acrocyanosis Resp: Denies: dyspnea, productive cough, non-productive cough or pain on inspiration GI: Denies: abdominal pain, nausea, vomiting, heartburn or diarrhea : Denies: flank pain, difficulty urinating or dysuria Musc: Denies: neck pain, back pain, extremity pain, extremity swelling or joint pain Skin/Breast: Denies: rash Neuro: Denies: headache(s), numbness in extremities, weakness in extremities, sensory changes or dizziness PFSH ED 2 PFSH: Medical History Right inguinal hernia Constipation History of nonmelanoma skin cancer Polyuria BPH loc w urin obs/LUTS Afib Hypertension Gastroesophageal reflux disease BPH (benign prostatic hyperplasia) Inguinal hernia Nail dystrophy Surgical History History of hemorrhoidectomy Status post right inguinal hernia repair H/O hernia repair Family History Mother No problems noted. Father , 50-OH CAD (coronary artery disease) Social History Smoking and tobacco/nicotine status: never used tobacco/nicotine Alcohol intake: never Substance/Drug Use: never Marital status: Single Current occupational status: retired Physical Exam 2 Const: COMMON NORMALS: no acute distress, average body habitus, patient oriented x3, no limitations, healthy appearing, alert and well nourished G ENERAL APPEARANCE: cooperative ORIENTATION/CONSCIOUSNESS: Yes awake, Yes oriented to person, Yes oriented to place and Yes oriented to time HENMT: COMMON NORMALS: normocephalic and atraumatic HEAD & SCALP: normal to inspection, normocephalic and atraumatic Eye: COMMON NORMALS: no scleral icterus Neck/C-Spine: COMMON NORMALS: full ROM, no lymphadenopathy, supple and no meningeal signs Chest: COMMONS NORMALS: normal inspection of the chest and normal palpation of entire chest wall Resp: COMMON NORMALS: normal respiratory effort and clear to auscultation bilaterally AUSCULTATION: clear to auscultation bilaterally Cardio: COMMON NORMALS: regular rate and regular rhythm RATE: regular rate RHYTHM: regular rhythm GI: COMMON NORMALS: Normal to inspection, nondistended, normoactive bowel sounds present, Soft to palpation, non-tender, No hepatosplenomegaly present and no masses PALPATION: Yes Soft to palpation and Yes No hepatosplenomegaly present : COMMON NORMALS: Yes no CVA tenderness BLADDER/KIDNEY EXAM: Yes no CVA tenderness Back/Pelvis: COMMON NORMALS: no CVA tenderness and thoracic and lumbar spine normal to inspection Extremity: COMMON NORMALS: normal to inspection, capillary refill normal, no clubbing, cyanosis or edema, no calf tenderness and no pedal edema GENERAL: Y es normal exam except as noted Neuro: COMMON NORMALS: patient oriented x3, moves all extremities, no focal motor deficits, no sensory deficits noted and gait normal S ENSORIUM/ORIENTATION: Yes alert, Yes oriented to person, Yes oriented to place and Yes oriented to time MENINGEAL SIGNS: Yes no meningeal signs Skin: COMMON NORMALS: no rashes or lesions noted GENERAL SKIN EXAM: no rashes or lesions noted Course 2 Vital Signs: Vital signs: Vital Signs Temperature 98.1 F 05/20/24 14:06 Pulse Rate 78 05/20/24 15:00 Respiratory Rate 20 H 05/20/24 15:00 Blood Pressure 168/87 05/20/24 15:00 Pulse Oximetry 100 05/20/24 15:00 Oxygen Delivery Me thod Room Air 05/20/24 15:00 MDM - Chest Pain Medical Decision Making Patient is a 73-year-old male here for intermittent left-sided chest pains that he states have been present for years . He is seemingly very healthy and walks several miles daily. He states he has never had symptoms during exertion/walking. Patient states he has had several previous cardiac evaluations including stress test and echocardiograms and these always come back normal. He has follow-up with dining services manager in approximately 3 weeks. His workup here is completely unremarkable. Patient will be allowed discharge with return precautions. His blood pressure has been elevated while here. He is agreeable to restart lisinopril which he states he has been on in the past at 2.5mg daily. Medical Records I reviewed the patient's medical records. Lab Data I reviewed the patient's lab results. 05/20/24 14:22 05/20/24 14:22 Radiology Impressions Chest X-Ray 05/20/24 14:05 IMPRESSION: No acute intrathoracic findings. Laboratory Results WBC 7.67 10^3/uL (3.29-11.43) 05/20/24 14:22 RBC 5.21 10^6/uL (3.85-5.65) 05/20/24 14:22 Hgb 15.70 g/dL (11.27-16.99) 05/20/24 14:22 Hct 48.8 % (37-53) 05/20/24 14:22 MCV 93.7 fl (82-101) 05/20/24 14:22 MCH 30.1 pg (27-33) 05/20/24 14:22 MCHC 32.2 g/dL (30-55) 05/20/24 14:22 RDW 14.0 % (12.1-15.1) 05/20/24 14:22 Plt Count 242 10^3/cmm (157-399) 05/20/24 14:22 MPV 9.2 fL (7.4-10.4) 05/20/24 14:22 Neut % (Auto) 63.1 % 05/20/24 14:22 Lymph % (Auto) 27.1 % 05/20/24 14:22 Alexander % (Auto) 6.6 % 05/20/24 14:22 Eos % (Auto) 2.3 % 05/20/24 14:22 Baso % (Auto) 0.5 % 05/20/24 14:22 Neut # (Auto) 4.83 10^3/uL (1.8-7.7) 05/20/24 14:22 Lymph # (Auto) 2.1 10^3/uL (0.8-4.8) 05/20/24 14:22 Alexander # (Auto) 0.5 10^3/uL (0.2-0.9) 05/20/24 14:22 Eos # (Auto) 0.2 10^3/uL (0.0-0.8) 05/20/24 14:22 Baso # (Auto) 0.0 10^3/uL (0.0-0.1) 05/20/24 14:22 Nucleated RBC % (auto) 0 % 05/20/24 14:22 Nucleated RBCs # 0.0 /100WBC 05/20/24 14:22 Sodium 140 mmol/L (136-145) 05/20/24 14:22 Potassium 4.2 mmol/L (3.5-5.1) 05/20/24 14:22 Chloride 102 mmol/L (98-107) 05/20/24 14:22 Carbon Dioxide 26 mmol/L (22-29) 05/20/24 14:22 Anion Gap 16.2 (5-19) 05/20/24 14:22 BUN 20 mg/dL (8-23) 05/20/24 14:22 Creatinine 1.0 mg/dL (0.7-1.2) 05/20/24 14:22 GFR Calculation Not Reportable 05/20/24 14:22 Glucose 115 mg/dL (65-115) 05/20/24 14:22 Calculated Osmolality 294 mOsm/kg (285-295) 05/20/24 14:22 Calcium 9.4 mg/dL (8.5-10.5) 05/20/24 14:22 Total Bilirubin 0.3 mg/dL (0.15-1.2) 05/20/24 14:22 AST 24 U/L (0-40) 05/20/24 14:22 ALT 26 U/L (0-41) 05/20/24 14:22 Alkaline Phosphatase 82 U/L (40-130) 05/20/24 14:22 Troponin T Baseline 8 ng/L (0-15) 05/20/24 14:22 Total Protein 6.9 g/dL (6.6-8.7) 05/20/24 14:22 Albumin 4.8 g/dL (3.5-5.2) 05/20/24 14:22 Globulin 2.1 g/dL (1.3-4.6) 05/20/24 14:22 Lipase 31 U/L (13-60) 05/20/24 14:22 All radiology interpretation(s) finalized by discharge Discharge Plan Discharge Patient Disposition: Home Clinical Impression: Chest pain Qualifiers: Chest pain type: unspecified Qualified Code(s): R07.9 - Chest pain, unspecified Hypertension Qualifiers: Hypertension type: primary hypertension Qualified Code(s): I10 - Essential (primary) hypertension Condition: Stable Prescriptions: New lisinopril 2.5 mg tablet 2.5 mg PO DAILY Qty: 30 0RF Rx Instructions: Can take 0.5 tab daily and increase to full tab daily as needed/tolerated No Action glucosamine HCl 500 mg tablet 500 mg PO BID multivitamin [Daily Multi-Vitamin] Tablet 1 tab PO DAILY cholecalciferol (vitamin D3) 125 mcg PO DAILY magnesium 250 mg tablet 250 mg PO DAILY coenzyme Q10 [CoQ-10] 100 mg capsule 100 mg PO DAILY lidocaine 5 % adhesive patch,medicated 1 patch topical DAILY Qty: 15 0RF Rx Instructions: leave on most painful area for up to 12 hrs Eliquis 5 mg tablet 5 mg PO BID Qty: 60 11RF Hold Instructions: Resume on 08/13/22. fluticasone propionate 50 mcg/actuation spray,suspension 1 spray intranasal DAILY PRN (Reason: allergies) Rx Instructions: USE ONE (1) SPRAY IN EACH NOSTRIL ONCE DAILY pantoprazole 40 mg tablet,delayed release (DR/EC) 40 mg PO DAILY Discharge Orders: Discharge ED (Routine); Ordered 05/20/24 Ordered By: Bessie Martin Referrals: Henegar,Edward, DO [Primary Care Provider] - Coding Level of Care Code ED Baggage Security Checker for Kyara Anderson
[2024-05-20 14:34] LABS: Basophils % 0.5 %; Eosinophils # 0.2 10^3/uL (0.0-0.8); Eosinophils % 2.3 %; Hematocrit 48.8 % (37-53); Lymphocytes # 2.1 10^3/uL (0.8-4.8); Lymphocytes % 27.1 %; Mean Corpuscular HGB Conc 32.2 g/dL (30-55); Mean Corpuscular Hemoglobin 30.1 pg (27-33); Mean Corpuscular Volume 93.7 fl (82-101); Mean Platelet Volume 9.2 fL (7.4-10.4); Monocytes # 0.5 10^3/uL (0.2-0.9); Monocytes % 6.6 %; Neutrophils # 4.83 10^3/uL (1.8-7.7); Neutrophils % 63.1 %; Nucleated Red Blood Cells % 0 %; Platelet Count 242 10^3/cmm (157-399); Red Blood Count 5.21 10^6/uL (3.85-5.65); White Blood Count 7.67 10^3/uL (3.29-11.43)
[2024-05-20 14:38] VITALS: BP 173/94; PULSE 72; RESP 16; O2SAT 97
[2024-05-20] MEDS: aspirin 81 mg Chew Tablet 324 MG PO (14:45)
[2024-05-20 14:53] LABS: Troponin(5th) Baseline 8 ng/L (0-15)
[2024-05-20 14:57] LABS: Alanine Aminotransferase 26 U/L (0-41); Albumin Level 4.8 g/dL (3.5-5.2); Alkaline Phosphatase 82 U/L (40-130); Anion Gap 16.2 (5-19); Aspartate Amino Transferase 24 U/L (0-40); Blood Urea Nitrogen 20 mg/dL (8-23); Calcium 9.4 mg/dL (8.5-10.5); Carbon Dioxide 26 mmol/L (22-29); Chloride 102 mmol/L (98-107); Creatinine Clr Calc Pharmacy 68.1919; Globulin 2.1 g/dL (1.3-4.6); Glucose 115 mg/dL (65-115); Lipase 31 U/L (13-60); Osmolality Calculated 294 mOsm/kg (285-295); Potassium 4.2 mmol/L (3.5-5.1); Sodium 140 mmol/L (136-145); Total Bilirubin 0.3 mg/dL (0.15-1.2); Total Protein 6.9 g/dL (6.6-8.7)
[2024-05-20 15:00] VITALS: BP 168/87; PULSE 78; RESP 20; O2SAT 100
[2024-05-20 15:20] VITALS: BP 168/87; PULSE 88; O2SAT 97
== END 2024-05-20 15:21 | disposition home or self-care (01) ==
PROVIDERS: Emergency Medicine; Emergency Provider Physician Assistant; PCP Family Medicine
DX: R07.9 Chest pain, unspecified (principal); I10 Essential (primary) hypertension
CPT/HCPCS: 71045; 80053; 83690; 84484; 85025; 93005; 99285

== ENCOUNTER → 2024-05-23 10:15 | Outpatient (BNVA) | payer MEDICARE, SELFPAY | PROVIDERS: PCP Family Medicine; Visit Provider Podiatrist Foot & Ankle Surgery | DX: L60.0 Ingrowing nail (principal); L60.8 Other nail disorders | CPT/HCPCS: 99213 ==

== ENCOUNTER 2024-06-09 18:00 | Emergency (ER) | payer MEDICARE, SELFPAY ==
[2024-06-09 18:12] VITALS: BP 167/81; PULSE 78; RESP 16; TEMP 36.7; O2SAT 99
[2024-06-09 18:21] LABS: Glucose Point of Care 95 mg/dL (70-110)
[2024-06-09 18:53] VITALS: BP 160/89; PULSE 69; O2SAT 97
--- NOTE | 2024-06-09 18:54 | ECG_ITS ---
[facility] [employer] Test Date: 2024-06-09 Pat Name: Miguel Angel Lechuga Department: Room: Gender: Male [employer]: : 1950 Requested By: Pat Faulkner Order Number: [id number] Jonathan MD: Prince Sarmiento M.D. Measurements Intervals [place] Rate: 69 P: 42 MN: 176 QRS: 42 QRSD: 87 T: 34 QT: 367 QTc: 395 Interpretive Statements SINUS RHYTHM POSSIBLE LEFT ATRIAL ENLARGEMENT [-0.1mV P-WAVE IN V1/V2] Compared to ECG 05/20/2024 14:17:49 No significant changes Electronically Signed On 06-10-2024 20:11:46 [employer] by Prince Sarmiento M.D. [email or web address]
--- NOTE | 2024-06-09 18:54 | CTR_ITS ---
PROCEDURE INFORMATION: Exam: CT Head Without Contrast Exam date and time: 06/09/2024 7:02 PM Age: 73 years old Clinical indication: Stroke-like symptoms; Other: Lower lip numbness; Khari lower extremity weakness; Additional info: No changes TECHNIQUE: Imaging protocol: Computed tomography of the head without contrast. Radiation optimization: All CT scans at this facility use at least one of these dose optimization techniques: automated exposure control; mA and/or kV adjustment per patient size (includes targeted exams where dose is matched to clinical indication); or iterative reconstruction. Other technique: STROKE PROTOCOL was implemented. COMPARISON: MR sanchez's wo/w con* [id number] 04/20/2020 1:20 PM RADIATION DOSE METRICS: Total DLP (mGy-cm): 1031.66 FINDINGS: Brain: No hemorrhage. No edema. Mild diffuse cerebral atrophy. No significant white matter disease. No mass effect. Cerebral ventricles: No ventriculomegaly. Paranasal sinuses: Visualized sinuses are unremarkable. No fluid levels. Mastoid air cells: Visualized mastoid air cells are well aerated. Bones: Unremarkable. No acute fracture. Soft tissues: Unremarkable. CT/CT head thrombolytic [id number] IMPRESSION: No acute intracranial abnormality. ASSESSMENT: ASPECTS (Jen Stroke Program Early CT Score) is 10.
[2024-06-09 19:01] LABS: Basophils # 0.1 10^3/uL (0.0-0.1); Basophils % 0.6 %; Eosinophils % 0.2 %; Hematocrit 48.1 % (37-53); Lymphocytes # 2.7 10^3/uL (0.8-4.8); Lymphocytes % 31.3 %; Mean Corpuscular HGB Conc 33.3 g/dL (30-55); Mean Corpuscular Hemoglobin 30.5 pg (27-33); Mean Corpuscular Volume 91.8 fl (82-101); Mean Platelet Volume 10.3 fL (7.4-10.4); Monocytes # 0.7 10^3/uL (0.2-0.9); Monocytes % 7.9 %; Neutrophils # 5.06 10^3/uL (1.8-7.7); Neutrophils % 59.4 %; Nucleated Red Blood Cells % 0 %; Platelet Count 230 10^3/cmm (157-399); Red Blood Count 5.24 10^6/uL (3.85-5.65); Red Cell Distribution Width 14.1 % (12.1-15.1); White Blood Count 8.51 10^3/uL (3.29-11.43)
--- NOTE | 2024-06-09 19:06 | ED_ITS ---
HPI - Dizziness 2 General: Chief Complaint: Dizziness Stated Complaint: dizziness and numb lips and legs heavy Time Seen by Provider: 06/09/24 18:21 History of Present Illness: HPI Narrative: Patient is a 73-year-old man that presents to the emergency department with double vision, lightheadedness, difficulty with word finding. Patient reports difficulty with word find has been throughout his lifetime. He has had double vision and lightheadedness for the last 7 months. He has a history of atrial fibrillation and sees a director data architecture every 6 months. He has seen his primary care doctor for these neurological changes and they have ordered an MRI of his brain. Patient has not had the MRI yet. He was told to present to the emergency department if he develops his symptoms again. He presents requesting MRI of the brain/head. Patient has a history of atrial fibrillation, hypertension, hyperlipidemia. He takes his medication as prescribed. Associated symptoms: Reports vomiting; Denies chest pain, chills, headache(s), nausea, palpitations or syncope Related Data Home Medications Medication Instructions Recorded Confirmed glucosamine HCl 500 mg tablet 500 mg PO BID 08/02/19 06/07/24 multivitamin (Daily Multi-Vitamin 1 tab PO DAILY 08/02/19 06/07/24 tablet) magnesium 250 mg tablet 250 mg PO DAILY 03/17/20 06/07/24 cholecalciferol (vitamin D3) 125 mcg PO DAILY 06/26/20 06/07/24 coenzyme Q10 100 mg capsule 100 mg PO DAILY 08/20/21 06/07/24 (CoQ-10) fluticasone propionate 50 1 spray intranasal DAILY PRN 06/27/22 06/07/24 mcg/actuation nasal allergies spray,suspension pantoprazole 40 mg tablet,delayed 40 mg PO DAILY 05/20/24 06/07/24 release Previous Rx's Medication Instructions Recorded lidocaine 5 % topical patch 1 patch topical DAILY #15 ea 03/10/23 apixaban 5 mg tablet (Eliquis) 5 mg PO BID #60 tabs 10/20/23 lisinopril 2.5 mg tablet 2.5 mg PO DAILY #30 tabs 05/20/24 Allergies Allergy/AdvReac Type Severity Reaction Status Date / Time acetaminophen Allergy Intermediate ALGY-Rash Verified 06/09/24 18:18 [From Darvocet-N] propoxyphene Allergy Intermediate ALGY-Rash Verified 06/09/24 18:18 [From Noel] codeine Allergy ALGY-Rash Verified 06/09/24 18:18 Review of Systems 2 Const: Denies: fever(s), chills or fatigue Card: Reports: lightheadedness; Denies: chest pain, palpitations, irregular heart rhythm, edema, swelling of feet/ankles, syncope, pre-syncope, dyspnea on exertion, orthopnea or leg pain with exertion Resp: Denies: dyspnea, productive cough or non-productive cough GI: Reports: vomiting; Denies: abdominal pain, nausea, diarrhea or constipation : Denies: flank pain, difficulty urinating, dysuria, urinary frequency or urinary hesitancy Musc: Reports: neck pain (chronic. ) and other (Reports prickly sensation in his scalp intermittently); Denies: back pain Neuro: Denies: headache(s) or dizziness Psych: Denies: anxiety, depression or homicidal ideation PFSH ED 2 PFSH: Medical History Right inguinal hernia Constipation History of nonmelanoma skin cancer Polyuria BPH loc w urin obs/LUTS Afib Hypertension Gastroesophageal reflux disease BPH (benign prostatic hyperplasia) Inguinal hernia Nail dystrophy Surgical History History of hemorrhoidectomy Status post right inguinal hernia repair H/O hernia repair Family History Mother No problems noted. Father , 50-IN CAD (coronary artery disease) Social History Smoking and tobacco/nicotine status: never used tobacco/nicotine Alcohol intake: never Substance/Drug Use: never Marital status: Single Current occupational status: retired Physical Exam 2 Const: COMMON NORMALS: no acute distress, patient oriented x3 and alert G ENERAL APPEARANCE: cooperative ORIENTATION/CONSCIOUSNESS: Yes awake, Yes oriented to person, Yes oriented to place and Yes oriented to time HENMT: COMMON NORMALS: normocephalic and atraumatic HEAD & SCALP: n ormocephalic and atraumatic FACE & SINUS: normal facial exam MOUTH: Normal oral and palatal mucosa present THROAT: posterior oropharynx normal Eye: COMMON NORMALS: Equal, round and reactive pupils present, EOMs intact bilaterally, conjunctivae normal and no scleral icterus GENERAL EYE: a ppearance normal, both eyes and all related structures ALIGNMENT: Yes alignment normal PERIORBITAL: periorbital findings normal CONJUNCTIVA: Yes conjunctivae normal PUPIL: Yes Equal, round and reactive pupils present Neck/C-Spine: COMMON NORMALS: full ROM GENERAL: Yes normal visual inspection Lymph: LYMPHATIC: no lymphadenopathy noted Chest: COMMONS NORMALS: normal inspection of the chest Breast/axilla inspection: Yes no chest deformity, asymmetry, normal contours, no nodules, masses, tenderness Resp: COMMON NORMALS: normal respiratory effort, No retractions, No use of accessory muscles and clear to auscultation bilaterally EFFORT & INSPECTION: Yes able to speak in complete sentences and Yes symmetric chest movement A USCULTATION: clear to auscultation bilaterally Cardio: COMMON NORMALS: regular rate, regular rhythm and Peripheral pulses 2+ throughout RATE: regular rate RHYTHM: regular rhythm PERIPHERAL PULSES: Peripheral pulses 2+ throughout GI: COMMON NORMALS: Normal to inspection, nondistended, normoactive bowel sounds present, Soft to palpation, non-tender and No hepatosplenomegaly present INSPECTION: Yes normal to inspection AUSCULTATION: Yes normoactive bowel sounds PALPATION: Yes Soft to palpation and Yes No hepatosplenomegaly present RECTAL EXAM: Yes deferred Extremity: COMMON NORMALS: normal to inspection GENERAL: Yes normal exam except as noted Neuro: COMMON NORMALS: patient oriented x3 SENSORIUM/ORIENTATION: Yes alert, Yes oriented to person, Yes oriented to place and Yes oriented to time CRANIAL NERVES: Yes CN normal except as noted COORDINATION/BALANCE: f eheyc-jq-[id number] test normal, ftmp-dt-[id number] test normal, Normal rapid alternating movements of the distal upper extremity present (Neuro) and Normal rapid alternating movements of the distal lower extremity present (Neuro) SPEECH: s peech normal SENSORY EXAM: Yes other (Normal) MOTOR EXAM: 5/5 motor strength present throughout, No Pronator motor function not present, no tremor noted, Motor fasciculations not present and Normal motor muscle tone present throughout COORDINATION: ryabfi-ml-tzls test normal, fcgj-wv-jzzs test normal, rapid alternating movement UE normal and rapid alternating movement LE normal Right pupil size (mm): 4 Left pupil size (mm): 4 Psych: COMMON NORMALS: mental status grossly normal, Normal thought process present, cooperative, activity/motor behavior normal, denies homicidal ideation and denies suicidal ideation THOUGHT PROCESS: Normal thought process present Skin: COMMON NORMALS: no rashes or lesions noted, no wounds and turgor normal GENERAL SKIN EXAM: no rashes or lesions noted and turgor normal Course 2 Vital Signs: Vital signs: Vital Signs Temperature 98.1 F 06/09/24 18:12 Pulse Rate 70 06/09/24 20:00 Respiratory Rate 16 06/09/24 20:00 Blood Pressure 179/99 06/09/24 20:00 Pulse Oximetry 98 06/09/24 20:00 Oxygen Delivery Me thod Room Air 06/09/24 18:53 MDM - Dizziness Medical Decision Making In the emergency department today patient had concerns for neurological event but has been holding for the last 7+ months. Some of the symptoms have been going on most of his life. Patient is complaining of double vision, word finding difficulty, and lightheadedness. He sought an MRI here today. Unfortunately we are unable to perform an MRI. I offered him transfer to another center where MRI capabilities available. He declined. I have offered him a stroke evaluation with CT and laboratories and he is agreeable to that. We are going to order a CT of his head and laboratory studies that included CBC, CMP, PT/INR and PTT , urinalysis, troponin series Laboratory studies revealed no acute finding. There was no leukocytosis, anemia, electrolyte abnormality, renal or liver dysfunction. The PT/INR/PTT were unremarkable. Urinalysis revealed no evidence of a UTI. No hematuria present. Patient's urine drug screen was negative Troponin was 11. EKG was performed 1826, just after his arrival. It reveals a sinus rhythm with a ventricular rate of 69 beats a minute and a QTc 387. There is no ST elevation, abnormal T wave inversion or ectopy. Heart score was 3 which made him a low risk. His CT head was negative. Now this answers a question of if he has had a hemorrhagic stroke, prior stroke and may even give some insight into space- occupying lesion but MRI head would offer us the most useful information. He is going to work with his primary care to obtain this. Patient has recently restarted his antihypertensives. In spite of this his blood pressure remained in the 170/90 range. He has not taken his medication tonight though. He is meeting with his director data architecture tomorrow as planned and he is going to discuss his blood pressure concerns further. At this time no further diagnostics are warranted. I am going to advised him to return to the emergency department should his symptoms worsen or change in a concerning way. Patient is agreeable and all questions were answered Lab Data 06/09/24 18:40 06/09/24 18:[address] 06/09/24 18:54 IMPRESSION: No acute intracranial abnormality. ASSESSMENT: ASPECTS ([place] Stroke Program Early CT Score) is 10. ADDENDUM: 06/09/241914 Findings were discussed with CLEMENTINE AU at 06/09/2024 7:13 PM MESS ATTENDANT. Laboratory Results WBC 8.51 10^3/uL (3.29-11.43) 06/09/24 18:40 RBC 5.24 10^6/uL (3.85-5.65) 06/09/24 18:40 Hgb 16.00 g/dL (11.27-16.99) 06/09/24 18:40 Hct 48.1 % (37-53) 06/09/24 18:40 MCV 91.8 fl (82-101) 06/09/24 18:40 MCH 30.5 pg (27-33) 06/09/24 18:40 MCHC 33.3 g/dL (30-55) 06/09/24 18:40 RDW 14.1 % (12.1-15.1) 06/09/24 18:40 Plt Count 230 10^3/cmm (157-399) 06/09/24 18:40 MPV 10.3 fL (7.4-10.4) 06/09/24 18:40 Neut % (Auto) 59.4 % 06/09/24 18:40 Lymph % (Auto) 31.3 % 06/09/24 18:40 [place] % (Auto) 7.9 % 06/09/24 18:40 Eos % (Auto) 0.2 % 06/09/24 18:40 Baso % (Auto) 0.6 % 06/09/24 18:40 Neut # (Auto) 5.06 10^3/uL (1.8-7.7) 06/09/24 18:40 Lymph # (Auto) 2.7 10^3/uL (0.8-4.8) 06/09/24 18:40 [place] # (Auto) 0.7 10^3/uL (0.2-0.9) 06/09/24 18:40 Eos # (Auto) 0.0 10^3/uL (0.0-0.8) 06/09/24 18:40 Baso # (Auto) 0.1 10^3/uL (0.0-0.1) 06/09/24 18:40 Nucleated RBC % (auto) 0 % 06/09/24 18:40 Nucleated RBCs # 0.0 /100WBC 06/09/24 18:40 PT 12.70 SECONDS (12.1-14.9) 06/09/24 18:40 INR 0.93 (0.8-1.2) 06/09/24 18:40 APTT 30.2 SECONDS (23.9-36.7) 06/09/24 18:40 Sodium 138 mmol/L (136-145) 06/09/24 18:40 Potassium 4.8 mmol/L (3.5-5.1) 06/09/24 18:40 Chloride 103 mmol/L (98-107) 06/09/24 18:40 Carbon Dioxide 25 mmol/L (22-29) 06/09/24 18:40 Anion Gap 14.8 (5-19) 06/09/24 18:40 BUN 25 mg/dL (8-23) H 06/09/24 18:40 Creatinine 0.9 mg/dL (0.7-1.2) 06/09/24 18:40 GFR Calculation Not Reportable 06/09/24 18:40 Glucose 89 mg/dL (65-115) 06/09/24 18:40 POC Glucose 95 mg/dL (70-110) 06/09/24 18:19 Calculated Osmolality 290 mOsm/kg (285-295) 06/09/24 18:40 Calcium 10.1 mg/dL (8.5-10.5) 06/09/24 18:40 Total Bilirubin 0.2 mg/dL (0.15-1.2) 06/09/24 18:40 AST 25 U/L (0-40) 06/09/24 18:40 ALT 28 U/L (0-41) 06/09/24 18:40 Alkaline Phosphatase 78 U/L (40-130) 06/09/24 18:40 Troponin T Baseline 11 ng/L (0-15) 06/09/24 18:40 Total Protein 7.3 g/dL (6.6-8.7) 06/09/24 18:40 Albumin 4.8 g/dL (3.5-5.2) 06/09/24 18:40 Globulin 2.5 g/dL (1.3-4.6) 06/09/24 18:40 Urine Color Yellow (Yellow) 06/09/24 19:30 Urine Appearance Clear (CLEAR) 06/09/24 19: Urine pH 6.0 (5-7) 06/09/24 19:30 Ur Specific [place] 1.008 (1.005-1.030) 06/09/24 19:30 Urine Protein Negative (Negative) 06/09/24 19:30 Urine Glucose (UA) Negative (Normal) 06/09/24 19:30 Urine Ketones Negative (Negative) 06/09/24 19:30 Urine Blood Negative (Negative) 06/09/24 19:30 Urine Nitrate Negative (Negative) 06/09/24 19:30 Urine Bilirubin Negative (Negative) 06/09/24 19:30 Urine Urobilinogen 0.2 mg/dL (Negative) 06/09/24 19:30 Ur Leukocyte Esterase Negative (Negative) 06/09/24 19:30 Urine RBC 0-2 /hpf (0-2) 06/09/24 19:30 Urine WBC 0-5 /hpf (0-5) 06/09/24 19:30 Ur Squamous Epith Cells 0-5 /hpf (0-5) 06/09/24 19:30 Amorphous Sediment Not Reportable 06/09/24 19:30 Urine Bacteria None seen /hpf (NONE) 06/09/24 19: Hyaline Casts 0-4 /lpf H 06/09/24 19:30 Urine Opiates Screen Negative ng/mL (Negative) 06/09/24 19:30 Ur Barbiturates Screen Negative ng/mL (Negative) 06/09/24 19:30 Ur Phencyclidine Scrn Negative ng/mL (Negative) 06/09/24 19:30 Ur Amphetamines Screen Negative ng/mL (Negative) 06/09/24 19:30 U Benzodiazepines Scrn Negative ng/mL (Negative) 06/09/24 19:30 Urine Cocaine Screen Negative ng/mL (Negative) 06/09/24 19:30 U Marijuana (THC) Screen Negative ng/mL (Negative) 06/09/24 19:30 All radiology interpretation(s) finalized by discharge Discharge Plan Discharge Patient Disposition: Home Clinical Impression: Episodic lightheadedness Condition: Stable Prescriptions: No Action glucosamine HCl 500 mg tablet 500 mg PO BID multivitamin [Daily Multi-Vitamin] Tablet 1 tab PO DAILY cholecalciferol (vitamin D3) 125 mcg PO DAILY magnesium 250 mg tablet 250 mg PO DAILY coenzyme Q10 [CoQ-10] 100 mg capsule 100 mg PO DAILY lidocaine 5 % adhesive patch,medicated 1 patch topical DAILY Qty: 15 0RF Rx Instructions: leave on most painful area for up to 12 hrs Eliquis 5 mg tablet 5 mg PO BID Qty: 60 11RF Hold Instructions: Resume on 08/13/22. fluticasone propionate 50 mcg/actuation spray,suspension 1 spray intranasal DAILY PRN (Reason: allergies) Rx Instructions: USE ONE (1) SPRAY IN EACH NOSTRIL ONCE DAILY pantoprazole 40 mg tablet,delayed release (DR/EC) 40 mg PO DAILY lisinopril 2.5 mg tablet 2.5 mg PO DAILY Qty: 30 0RF Rx Instructions: Can take 0.5 tab daily and increase to full tab daily as needed/tolerated Discharge Orders: Discharge ED (Routine); Ordered 06/09/24 [facility] Referrals: Pritesh Tirado DO [Primary Care Provider] - Discharge Diet: Advance as tolerated Discharge Activity: Resume usual activity Patient Instructions: Pain Management, Lightheadedness (ED) Activity Restrictions/Additional Instructions: Please keep your appointment with your director data architecture and your primary care. Return to the emergency department for new, concerning, worsening symptoms Coding Level of Care Code ED [employer] Machine Feeder for Kyara Anderson
[2024-06-09 19:21] LABS: INR 0.93 (0.8-1.2)
[2024-06-09 19:22] LABS: Partial Thromboplastin Time 30.2 SECONDS (23.9-36.7)
[2024-06-09 19:27] LABS: Troponin(5th) Baseline 11 ng/L (0-15)
[2024-06-09 19:30] LABS: Alanine Aminotransferase 28 U/L (0-41); Albumin Level 4.8 g/dL (3.5-5.2); Alkaline Phosphatase 78 U/L (40-130); Blood Urea Nitrogen 25 mg/dL (8-23); Calcium 10.1 mg/dL (8.5-10.5); Carbon Dioxide 25 mmol/L (22-29); Chloride 103 mmol/L (98-107); Creatinine Clr Calc Pharmacy 76.5083; Globulin 2.5 g/dL (1.3-4.6); Glucose 89 mg/dL (65-115); Osmolality Calculated 290 mOsm/kg (285-295); Sodium 138 mmol/L (136-145); Total Bilirubin 0.2 mg/dL (0.15-1.2); Total Protein 7.3 g/dL (6.6-8.7)
[2024-06-09 19:34] LABS: Anion Gap 14.8 (5-19); Aspartate Amino Transferase 25 U/L (0-40); Potassium 4.8 mmol/L (3.5-5.1)
[2024-06-09 19:42] LABS: Bilirubin Urine Negative (Negative); Blood Urine Negative (Negative); Glucose Urine UA Negative (Normal); Ketones Urine Negative (Negative); Leukocyte Esterase Urine Negative (Negative); Nitrate Urine Negative (Negative); Protein Urine Negative (Negative); Specific Gravity, Urine 1.008 (1.005-1.030); Urine Appearance Clear (CLEAR); Urine Color Yellow (Yellow); Urobilinogen Urine 0.2 mg/dL (Negative)
[2024-06-09 19:47] VITALS: PULSE 68; RESP 19; O2SAT 98
[2024-06-09 19:47] LABS: Add Urine Microscopic? YES; Bacteria Urine None Seen /hpf; Hyaline Casts Urine 0-4 /lpf; RBC Urine 0-2 /hpf (0-2); Squamous Epithelial Cell Urine 0-5 /hpf (0-5); WBC Urine 0-5 /hpf (0-5)
[2024-06-09 20:00] VITALS: BP 179/99; PULSE 70; RESP 16; O2SAT 98
[2024-06-09 20:00] LABS: Amphetamines Screen Urine Negative (Negative); Barbiturates Screen Urine Negative (Negative); Benzodiazepines Screen Urine Negative (Negative); Cocaine Screen Urine Negative (Negative); Opiate Screen Urine Negative (Negative); PCP Screen Urine Negative (Negative); THC Screen Urine Negative (Negative)
[2024-06-09 20:35] VITALS: BP 170/89; PULSE 75; O2SAT 99
== END 2024-06-09 20:36 | disposition home or self-care (01) ==
PROVIDERS: Emergency Provider Nurse Practitioner; PCP Family Medicine
DX: R42 Dizziness and giddiness (principal); I10 Essential (primary) hypertension
CPT/HCPCS: 36415; 36416; 70450; 80053; 80306; 81001; 82962; 84484; 85025; 85610; 85730; 93005; 99285

== ENCOUNTER → 2024-06-10 15:19 | Outpatient (BNVA) | payer MEDICARE, SELFPAY | PROVIDERS: PCP Family Medicine; Visit Provider Internal Medicine | DX: I48.91 Unspecified atrial fibrillation (principal); I10 Essential (primary) hypertension; Z79.01 Long term (current) use of anticoagulants | CPT/HCPCS: 99214 ==

== ENCOUNTER → 2024-06-13 09:04 | Outpatient (BNVA) | payer MEDICARE, SELFPAY | PROVIDERS: PCP Family Medicine; Visit Provider Nurse Practitioner Family | DX: R42 Dizziness and giddiness (principal); H53.9 Unspecified visual disturbance; R47.9 Unspecified speech disturbances | CPT/HCPCS: 86160; 86618; 86666; 86668; 86757 ==

== ENCOUNTER 2024-06-18 13:56 | Outpatient (CLI) | payer MEDICARE, SELFPAY ==
--- NOTE | 2024-06-18 14:30 | MR_ITS ---
WS: [id number] MRI HEAD WITHOUT CONTRAST TECHNIQUE: Sagittal T1, T2 axial, T2 axial FLAIR, axial and coronal T1 images, axial susceptibility w eighted imaging, axial diffusion weighted images, and coronal T2 images were obtained. CLINICAL INFORMATION: H53.9 - Unspecified visual disturbance COMPARISON: CT 06/09/2024 FINDINGS: No evidence of restricted diffusion to suggest acute ischemia. Ventricular system and basal cisterns are patent. Normal posterior fossa. Normal vascular flow voids at the skull base. No extra-axial flui d collections. No evidence of mass or mass effect. Paranasal sinuses are well aerated. Normal posteri or nasopharynx. Mastoid air cells are well aerated. Normal optic chiasm and pituitary infundibulum. Temporal lobes and hippocampal formations are normal in appearance. No hemosiderin on the susceptibility weighted images. Mild small vessel changes. Moderate parenchymal volume loss more prominent in the frontal and parieta l lobes. MR/MR head wo con* [id number] IMPRESSION: 1. No evidence of restricted diffusion to suggest acute ischemia. 2. Mild small vessel changes. Mild to moderate parenchymal volume loss worse i n the frontal and parietal lobes. This is slightly progressed since 2019. 3. No hemosiderin on the susceptibility weighted images. 4. Temporal lobes and hippocampal formations are normal in appearance.
== END 2024-06-18 13:57 | disposition home or self-care (01) ==
PROVIDERS: PCP Family Medicine; Visit Provider Nurse Practitioner Family
DX: G31.89 Other specified degenerative diseases of nervous system (principal); H53.9 Unspecified visual disturbance; R42 Dizziness and giddiness; R47.9 Unspecified speech disturbances
CPT/HCPCS: 70551

== ENCOUNTER → 2024-06-25 15:03 | Outpatient (BNVA) | payer MEDICARE, SELFPAY | PROVIDERS: PCP Family Medicine; Visit Provider Physician Assistant | DX: M75.42 Impingement syndrome of left shoulder; R03.0 Elevated blood-pressure reading, without diagnosis of hypertension | CPT/HCPCS: 99213 ==

== ENCOUNTER → 2024-10-08 08:08 | Outpatient (BNVA) | payer MEDICARE, SELFPAY | PROVIDERS: PCP Nurse Practitioner Family; Visit Provider Nurse Practitioner Family | DX: I10 Essential (primary) hypertension (principal) | CPT/HCPCS: 80053; 80061 ==

== ENCOUNTER 2024-10-15 09:23 | Outpatient (RCR) | payer MEDICARE, SELFPAY | END 2024-10-16 23:59 | disposition home or self-care (01) | LOC: SPT 09:23 | PROVIDERS: PCP Nurse Practitioner Family; Visit Provider Nurse Practitioner Family | DX: R42 Dizziness and giddiness (principal) | CPT/HCPCS: 95992; 97161 ==

== ENCOUNTER → 2024-11-12 09:42 | Outpatient (BNVA) | payer MEDICARE, SELFPAY | PROVIDERS: PCP Family Medicine; Visit Provider Nurse Practitioner Family | DX: D23.22 Other benign neoplasm of skin of left ear and external auricular canal (principal); L57.8 Other skin changes due to chronic exposure to nonionizing radiation; L81.4 Other melanin hyperpigmentation; Z08 Encounter for follow-up examination after completed treatment for malignant neoplasm; Z85.828 Personal history of other malignant neoplasm of skin; D48.5 Neoplasm of uncertain behavior of skin; L57.0 Actinic keratosis | CPT/HCPCS: 11102; 17000; 99213 ==

== ENCOUNTER → 2024-11-26 09:38 | Outpatient (BNVA) | payer MEDICARE, SELFPAY | PROVIDERS: PCP Family Medicine; Visit Provider Dermatology | DX: L81.4 Other melanin hyperpigmentation (principal); L90.5 Scar conditions and fibrosis of skin; C44.319 Basal cell carcinoma of skin of other parts of face | CPT/HCPCS: 13132; 17311; 99213 ==

== ENCOUNTER → 2024-12-10 13:47 | Outpatient (BNVA) | payer MEDICARE, SELFPAY | PROVIDERS: PCP Nurse Practitioner Family; Visit Provider Nurse Practitioner Family | DX: I48.0 Paroxysmal atrial fibrillation (principal); I10 Essential (primary) hypertension; Z79.01 Long term (current) use of anticoagulants | CPT/HCPCS: 93005; 99214 ==

== ENCOUNTER 2025-01-14 07:57 | Outpatient (CLI) | payer MEDICARE, SELFPAY ==
--- NOTE | 2025-01-14 | ECG_ITS ---
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 Interpretive Statements EXERCISE DATA: The patient was exercised by Armaan protocol. Baseline heart rate was 82 beats per minute. Baseline blood pressure was 180/79 millimeters of mercury. Maximal predicted heart rate was 145 beats per minute. Maximum heart rate achieved was 147, which was 101% of the maximum predicted heart rate. Maximum blood pressure was 213/84 millimeters of mercury. Total exercise time was 7 minutes 31 seconds. Maximum METs achieved was 10.2. The reason for ending the test was reaching maximal effort. The patient had no symptomatic complaints during stress test ELECTROCARDIOGRAM: BASELINE: Showed sinus rhythm, normal axis, no significant ST-T changes at the baseline noted. [] EXERCISE: At the peak exercise level, [] No significant ST-T changes suggestive of ischemia noted. [] RECOVERY: During the recovery period, heart rate dropped appropriately. No significant ST-T changes in the recovery suggestive of ischemia noted. [] CONCLUSION: 1. Exercise capacity good. 2. Heart rate response was [appropriate]. 3. Blood pressure response was [appropriate]. 4. No symptoms of ischemia. 5. Electrocardiogram portion of the stress test was not suggestive of ischemia. Electronically Signed On 01-19-2025 13:20:28 CDT by Almas Gaytan M.D. [email or web address]
[2025-01-14 08:27] VITALS: BMI 23.7
--- NOTE | 2025-01-14 08:29 | NMCV_ITS ---
NM summer perf SPECT r/s* [id number] Miguel Angel Lechuga Age: 74 Gender: M : 1950 Exam Date: 01/14/2025 09:10 Ordering Phys: Bessie Smith NP Technologist: NITZA Dean Exam Location: [facility] Indications: CP STRESS TEST Please see separate stress test report in [facility] for full findings IMAGE PROTOCOL Rest/Stress 1 Exercise Day Radiopharmaceutical Dose (mCi) Administration Site Administered by Rest: Tc-99m 10.4 IV Alicja Monsivais, AGILE SCRUM COACH Sestamibi Stress:Tc-99m 32.7 IV Alicja Monsivais, AGILE SCRUM COACH Sestamibi Rest: 14-Jan-2025 60 Discovery 630 Stress: 14-Jan-2025 15 Discovery 630 Radiopharmaceutical was injected at 94 % maximum heart rate. Images obtained in supine and prone position. SPECT RESULTS Technical Quality: Good Raw Data Analysis: Normal Image Corrections: No attenuation or motion correction applied Summed Stress Score: 0 Summed Rest Score: 0 Summed Difference Score: 0 PERFUSION FINDINGS Normal tracer uptake in all myocardial segments FUNCTIONAL RESULTS (calculated via Gated SPECT) Stress Image LV EF (%): 86 Stress EDV (mL):58 TID: 0.69 Stress ESV (mL):8 FUNCTIONAL FINDINGS: Hyperdynamic left ventricular systolic function with EF 86% IMPRESSIONS 1. Normal myocardial perfusion with no evidence of infarction or inducible ischemia. 2. Hyperdynamic left ventricular systolic function, EF 86% Almas Gaytan MD, FACC (Electronically Signed) Final Date: 14 January 2025 12:09 S
[2025-01-14 10:11] VITALS: BP 158/64; PULSE 110
--- NOTE | 2025-01-14 13:30 | USCV_ITS ---
Miguel Angel Lechuga Age: 74 Gender: M : 1950 Exam Date: 01/14/2025 08:25 Ordering Phys: Bessie Smith NP Technologist: VICTORIANO Exam Location: [facility] Indication: CP BP: 170 / 80 HR: 68 Rhythm: Sinus Technical Quality: Adequate MEASUREMENTS (Male / Female) Normal Values 2D ECHO LV Diastolic Diameter PLAX 4.8 cm 4.2 - 5.9 / 3.9 - 5.3 cm IVS Diastolic Thickness 0.8 cm 0.6 - 1.0 / 0.6 - 0.9 cm IVS Systolic Thickness 1.4 cm LVPW Diastolic Thickness 1.0 cm 0.6 - 1.0 / 0.6 - 0.9 cm LVPW Systolic Thickness 1.4 cm LVOT Diameter 2.2 cm LV Ejection Fraction 2D Teich 68.5 % LV Ejection Fraction MOD 4C 75.2 % LV Ejection Fraction MOD 2C 69.9 % LV Ejection Fraction 2C AL 71.5 % LA Diameter 3.3 cm RA Systolic Volume 4C AL 36.5 ml RA Systolic Volume 4C MOD 34.9 ml LA Sys Volume AL 41.8 cm cubed LA Sys Volume Index AL 21.2 cm cubed/m squared Aorta at Sinotubular Diameter 2.6 cm IVC Diameter 1.7 cm M-MODE LA Ao Ratio MM 1.4 AV Cusp Separation MM 1.7 cm DOPPLER AV Peak Velocity 121.0 cm/s LVOT Peak Velocity 113.0 cm/s AV Area Cont Eq vti 2.5 cm squared AV Area Cont Eq pk 3.5 cm squared MV Peak Velocity 124.0 cm/s MV Area PHT 3.6 cm squared Mitral E to A Ratio 0.7 TR Peak Velocity 222.0 cm/s TR Peak Gradient 19.7 mmHg TV Peak E Velocity 99.0 cm/s PV Peak Velocity 72.0 cm/s FINDINGS Left Ventricle Normal left ventricular size, systolic function and wall thickness, with no regional wall motion abnormalities. Left ventricular ejection fraction is estimated at 60 %. Grade I/IV diastolic dysfunction (abnormal relaxation filling pattern), normal to mildly elevated filling pressures. Right Ventricle The right ventricle is normal in size and function. Right Atrium The right atrium is normal in size. Left Atrium The left atrium is normal in size. Mitral Valve Mildly thickened mitral valve. No mitral valve stenosis. Mild mitral valve regurgitation. Aortic Valve Mild aortic valve calcification. No aortic valve stenosis. Mild aortic valve regurgitation. Tricuspid Valve Structurally normal tricuspid valve without significant stenosis or regurgitation. Pulmonary artery systolic pressure is normal. Pulmonic Valve Structurally normal pulmonic valve without significant stenosis. There is no pulmonic regurgitation. Pericardium Normal pericardium without effusion. Aorta Normal ascending aorta dimension. IVC The inferior vena cava appears normal. CONCLUSIONS Normal left ventricular size, systolic function and wall thickness, with no regional wall motion abnormalities. Left ventricular ejection fraction is estimated at 60 %. Grade I/IV diastolic dysfunction (abnormal relaxation filling pattern), normal to mildly elevated filling pressures. Mild aortic valve calcification. No aortic valve stenosis. Mild aortic valve regurgitation. Mildly thickened mitral valve. No mitral valve stenosis. Mild mitral valve regurgitation. There is no pericardial effusion. Right atrial pressure is around 5 mm of mercury. Tarik Powers MD (Electronically Signed) Final Date: 15 January 2025 13:44 S
== END 2025-01-14 07:58 | disposition home or self-care (01) ==
LOC: CDL 07:59
PROVIDERS: PCP Nurse Practitioner Family; Visit Provider Nurse Practitioner Family
DX: R07.9 Chest pain, unspecified (principal); I51.89 Other ill-defined heart diseases; I34.0 Nonrheumatic mitral (valve) insufficiency; I34.89 Other nonrheumatic mitral valve disorders; I35.1 Nonrheumatic aortic (valve) insufficiency; I35.8 Other nonrheumatic aortic valve disorders
CPT/HCPCS: 36415; 78452; 93017; 93306; A9500

== ENCOUNTER → 2025-05-07 11:21 | Outpatient (BNVA) | payer MEDICARE, SELFPAY | PROVIDERS: PCP Nurse Practitioner Family; Visit Provider Nurse Practitioner Family | DX: L57.8 Other skin changes due to chronic exposure to nonionizing radiation (principal); L81.4 Other melanin hyperpigmentation; D18.01 Hemangioma of skin and subcutaneous tissue; L82.1 Other seborrheic keratosis; Z08 Encounter for follow-up examination after completed treatment for malignant neoplasm; Z85.828 Personal history of other malignant neoplasm of skin; L57.0 Actinic keratosis | CPT/HCPCS: 17000; 99213 ==

== ENCOUNTER → 2025-06-09 14:35 | Outpatient (BNVA) | payer MEDICARE, SELFPAY | PROVIDERS: PCP Nurse Practitioner Family; Visit Provider Internal Medicine | DX: I10 Essential (primary) hypertension (principal); I48.91 Unspecified atrial fibrillation; Z79.01 Long term (current) use of anticoagulants | CPT/HCPCS: 99214 ==